=== PATIENT | female | born 1945 | race Two or more races ===

== ENCOUNTER 2019-07-11 13:58 | Inpatient (IN) | payer OTHER ==
[~2019-07-11] VITALS: Ht 160 cm; Wt 73.9 kg
[2019-07-11] MEDS ORDERED: FORTAMET500 MG (14:17)
[2019-07-11] MEDS ORDERED: LEVOTHYROXINE25 MCG (14:17)
[2019-07-11] MEDS ORDERED: DILTIAZEM100 MG/100 (14:18)
[2019-07-11] MEDS ORDERED: ZANTAC150 MG (14:18)
[2019-07-11] MEDS ORDERED: RESTASIS1 EACH (14:18)
[2019-07-11] MEDS ORDERED: ENALAPRIL MALEAT5 MG (14:18)
[2019-07-11] MEDS ORDERED: REFRESH OPTIVE1 EAC1 (14:19)
[2019-07-11] MEDS ORDERED: ALFAGAN (14:19)
[2019-07-15] MEDS ORDERED: ALPHAGAN P5 ML (10:10)
== END 2019-07-15 18:20 | disposition home or self-care (01) | DRG 439 ==
LOC: ER 13:58 → MEDI 22:35 → SEC-K 22:35 → MEDI 07-12 00:14
PROVIDERS: ADMIT Internal Medicine
PROC: BW40ZZZ Ultrasonography of Abdomen (ICD-10-PCS; 2019-07-11)
PROC: BF37ZZZ Magnetic Resonance Imaging (MRI) of Pancreas (ICD-10-PCS; principal; 2019-07-12)
DX: K85.80 Other acute pancreatitis without necrosis or infection (principal); N17.8 Other acute kidney failure; E11.22 Type 2 diabetes mellitus with diabetic chronic kidney disease; R74.0 Nonspecific elevation of levels of transaminase and lactic acid dehydrogenase [LDH]; I12.9 Hypertensive chronic kidney disease with stage 1 through stage 4 chronic kidney disease, or unspecified chronic kidney disease; N18.2 Chronic kidney disease, stage 2 (mild); E11.65 Type 2 diabetes mellitus with hyperglycemia; Z79.4 Long term (current) use of insulin

== ENCOUNTER → 2020-05-03 | Emergency (ER) | payer OTHER ==
[~2020-05-03] MED LIST: ALFAGAN; ALPHAGAN P5 ML; DILTIAZEM100 MG/100; ENALAPRIL MALEAT5 MG; FORTAMET500 MG; LEVOTHYROXINE25 MCG; REFRESH OPTIVE1 EAC1; RESTASIS1 EACH; ZANTAC150 MG
== END | disposition left against medical advice (07) ==
LOC: ER 13:40
DX: Z53.20 Procedure and treatment not carried out because of patient's decision for unspecified reasons (principal)